=== PATIENT | female | born 1985 | race Two or more races ===

== ENCOUNTER → 2017-12-13 | Outpatient (CLI) | payer OTHER | END | disposition home or self-care (01) | LOC: KCIC 10:30 | DX: M25.851 Other specified joint disorders, right hip (principal); G89.29 Other chronic pain | CPT/HCPCS: 73502 ==

== ENCOUNTER → 2018-01-15 | Outpatient (CLI) | payer OTHER | END | disposition home or self-care (01) | LOC: KCIC MRI 15:11 | DX: M25.551 Pain in right hip (principal); G89.29 Other chronic pain | CPT/HCPCS: 73721 ==

== ENCOUNTER 2018-02-27 21:44 | Emergency (ER) | payer OTHER ==
[~2018-02-27] VITALS: Ht 162.6 cm; Wt 98.9 kg
[~2018-02-27 21:44] MED LIST: BUTA1CAP29 PO; PNV1TABL4
[2018-02-27 22:00] VITALS: BP 134/60
--- NOTE | 2018-02-27 22:28 | PHYS DOC ---
Past Medical History Past Medical History: Migraines Additional Past Medical Histor: back problems Past Surgical History: Alcohol Use: None Drug Use: None Adult General Chief Complaint Chief Complaint: Congestion HPI HPI Patient is a 32 year old male who presents to the emergency Department today with complaints of nasal congestion for the last week with a runny nose, sneezing and itchy watery eyes. 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 She denies any fever, sore throat, rash. States that she has had a bit of a dry cough. She denies any shortness of breath or wheezing. Her only health history is some depression and a bad right hip. She denies any surgical history, and is unable to remember the name of her depression medication. She denies any known drug allergies. Review of Systems Review of Systems Constitutional: Denies fever or chills [] Eyes: Denies change in visual acuity, redness, or eye pain; reports watery eyes and itching for the last week [] HENT: Denies ear pain or sore throat, reports nasal congestion, runny nose with clear drainage, and sneezing [] Respiratory: Denies wheezing or shortness of breath; reports dry cough [] Cardiovascular: Denies chest pain GI: Denies abdominal pain, nausea, vomiting Integument: Denies rash Neurologic: Denies focal weakness or sensory changes, reports mild headache All other systems were reviewed and found to be within normal limits, except as documented in this note. Allergies Allergies Allergies Coded Allergies Type Severity Reaction Last Updated Verified No Known Drug Allergies 10/14/13 No Physical Exam Physical Exam Constitutional: Well developed, well nourished, no acute distress, non-toxic appearance. [] HENT: Normocephalic, atraumatic, bilateral external ears normal, bilateral TMs are normal, cobblestone appearance of posterior pharynx with white postnasal drainage, oropharynx moist, no oral exudates, erythema and edematous turbinates of bilateral nares, Eyes: PERRLA, conjunctiva normal, no discharge, allergic shiners bilaterally [ ] Neck: Normal range of motion, no tenderness, no lymphadenopathy, supple, no stridor. [] Cardiovascular:Heart rate regular rhythm, no murmur [] Lungs & Thorax: Bilateral breath sounds clear to auscultation [] Skin: Warm, dry, no erythema, no rash. [] Neurologic: Alert and oriented X 3, normal motor function, normal sensory function, no focal deficits noted. [] Psychologic: Affect normal, judgement normal, mood normal. [] Current Patient Data Vital Signs Vital Signs Date Time Temp Pulse Resp B/P (MAP) Pulse Ox O2 Delivery O2 Flow Rate FiO2 02/27/18 22:00 97.6 80 20 134/60 (84) 98 Room Air 97.6 EKG EKG [] Radiology/Procedures Radiology/Procedures [] Course & Med Decision Making Course & Med Decision Making Pertinent Labs and Imaging studies reviewed. (See chart for details) Patient is a 32-year-old female who presents to the emergency room with complaints of a dry cough, nasal congestion, sneezing, and itchy watery eyes for the last week after remodeling began at her place of employment. VSS, patient history and physical exam are consistent with allergic rhinitis. Patient is treated as such. Advised patient to purchase an jdsz-aaf-mxscjct antihistamine such as Zyrtec, Claritin, or Homa and to take this medication at night. Also encouraged patient to buy vnez-kml-hkkslfw 4 days into to use 2 sprays in each nare once a day in the mornings. Encouraged patient to follow up with her primary care doctor in 1-2 days. Patient verbalized an understanding of home care, eavz-kqo-dvkkwcn medications, follow-up, and return to ED instructions and was in agreement with plan of care. [] Dragon Disclaimer Dragon Disclaimer This electronic medical record was generated, in whole or in part, using a voice recognition dictation system. Departure Departure Impression: Primary Impression: Allergic rhinitis Additional Impression: Allergic cough Disposition: 01 HOME, SELF-CARE Condition: STABLE Referrals: THAD TIRADO (PCP) Patient Instructions: Allergic Rhinitis Additional Instructions: Recommend licj-vla-vhxqqsi antihistamine such as Zyrtec, Claritin, or Homa, in addition to daily use of gbll-deo-fbwjdkv Flonase 2 sprays each nare daily. Tylenol or ibuprofen prn pain/fever. Increase clear fluids. Avoid triggers such as smoke, fragrance, dust, and pollen. Follow-up with your primary care doctor in 1-2 days. Return to the emergency room if your symptoms worsen. Problem Qualifiers Primary Impression: Allergic rhinitis Allergic rhinitis trigger: unspecified Allergic rhinitis seasonality: unspecified Qualified Codes: J30.9 - Allergic rhinitis, unspecified TIFFANY RAMIREZ [employer] Feb 27, 2018 22:28
== END 2018-02-27 22:37 | disposition home or self-care (01) ==
LOC: ER 21:44
DX: J30.9 Allergic rhinitis, unspecified (principal); G43.909 Migraine, unspecified, not intractable, without status migrainosus
CPT/HCPCS: 99281

== ENCOUNTER → 2018-05-14 | Outpatient (CLI) | payer BC ==
--- NOTE | 2018-05-14 11:24 | RAD ---
MRI Lumbar Spine without contrast History: Low back pain with right leg radiculopathy Technique: Multiplanar, multi sequential noncontrast MR imaging was performed of the lumbar spine. Contrast: None Comparison: None Findings: Lumbar vertebral body AP alignment is maintained. Conus terminates at L1-2. There is mild superior endplate irregularity and height loss of L4 and L5 likely on a chronic or developmental basis, limbus vertebra of L5. There is no significant marrow edema. There is mild disc desiccation L3-4 and to lesser degree at L4-5. There is posterior annular tear L5-S1. There is likely small hemangioma of the L2 vertebral body. L2-L3: Neural foramina and spinal canal are adequate. L3-L4: Spinal canal and neural foramina are adequate. L4-L5: There is very minimal posterior bulge. Neural foramina and spinal canal are adequate. There is minimal buckling of the ligamentum flavum. L5-S1: There is shallow broad posterior protrusion, no significant impingement of the descending S1 nerve roots or significant spinal stenosis. Neural foramina are adequate. Impression: 1. There is no significant lumbar spinal stenosis or neural foramina compromise. There is shallow broad posterior protrusion at L5-S1. Electronically signed by: Shan Hill MD (05/14/2018 11:21 AM) [id number]
--- NOTE | 2018-05-14 17:01 | RAD ---
Examination: BONE SCAN LIMITED History: right hip pain for 3 months, right acetabular cyst , no known injury. 26.5mCi Tc99m MDP Comparison/Correlation: Right hip MRI exam 12/16/2017 Findings: 26.5 mCi technetium 99 MDP was intravenously administered for Limited bone scintigraphy of the level from the mid lumbar spine to the mid femoral shaft. Imaging was performed in anterior, posterior, TELLEZ, right lateral, left lateral, and LPO projections. Total of 8 images were provided. There is mild uptake involving the right supra-acetabular region corresponding to the patient's known cyst at this site. Uptake involving bony structures otherwise is normal. Radiotracer is present in the urinary bladder. Impression: Mild uptake involving the right supra-acetabular region corresponding to the site of the patient's known cyst. No other sites of abnormal uptake. Electronically signed by: Bryce James MD (05/14/2018 4:58 PM) [facility]
== END | disposition home or self-care (01) ==
LOC: NM 09:22
PROVIDERS: ATTEND Orthopaedic Surgery
DX: M51.27 Other intervertebral disc displacement, lumbosacral region (principal); M51.37 Other intervertebral disc degeneration, lumbosacral region; M25.851 Other specified joint disorders, right hip
CPT/HCPCS: 72148; 78300; 96374; A9503

== ENCOUNTER → 2021-11-15 | Outpatient (CLI) | payer BC ==
--- NOTE | 2021-11-15 15:53 | KCIC ---
XR HIP (WITH OR WITHOUT PELVIS) RIGHT 1 VIEW 11/15/2021 Reason: CHRONIC PAIN RT HIP, NO INJURY Comparison: None Technique: AP of the pelvis, additional view of the right hip Findings: No acute fracture or dislocation. Bone mineralization is within normal limits. The right acetabulum a ppears shallow with uncovering of the right femoral head. Impression: 1. No acute osseous abnormality. 2. 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 Electronically signed by: Richard Harvey MD (11/15/2021 3:51 PM) [id number]
== END ==
LOC: KCIC 12:54
PROVIDERS: ATTEND Physician Assistant Medical
DX: M25.551 Pain in right hip (principal)
CPT/HCPCS: 73501